=== PATIENT | male | born 1955 | race American Indian/Alaskan Native ===

== ENCOUNTER 2017-05-23 13:26 | Emergency (ER) | payer OTHER ==
--- NOTE | 2017-05-23 14:54 | Cat Scan Report ---
FINAL REPORT PROCEDURE: CT HEAD/BRAIN WO CON TECHNIQUE: Computerized tomography of the head was performed without contrast material. HISTORY: headache COMPARISON: No prior studies are available for comparison. FINDINGS: Brain: Brain density appears normal. No evidence of intracranial hemorrhage. No parenchymal hemorrhage, mass lesions or mass effect are seen. No abnormal extraxial fluid collects or masses are seen. Nonspecific mineralization of the basal ganglia are visualized. Ventricles: Ventricles are normal size and are midline. Bone Windows: No evidence of skull fracture. Paranasal sinuses: There is patchy mucosal disease in a few of the ethmoid air cells bilaterally. There is also mild mucosal thickening anterior in the left side of the sphenoid sinus. Small calcified nodular density is seen anterior medial aspect right frontal sinus measuring 8.3 x 3.9 millimeters suggesting a small osteoma. Visualized portions of the paranasal sinuses otherwise appear clear. Mastoid air cells: Clear IMPRESSION: Negative unenhanced CT of the brain. Mild paranasal sinus disease as described.
[2017-05-23] MEDS ORDERED: REGLAN IV ONE (16:09)
--- NOTE | 2017-05-23 16:09 | Emergency Department Report ---
ED Headache HPI - General Chief Complaint: Headache Stated Complaint: SEVERE HEADACHES Time Seen by Provider: 05/23/17 16:07 - History of Present Illness Initial Comments: 61-year-old male past medical history hypertension, diabetes presents with complaint of 3 days of waxing and waning anterior throbbing headaches. Patient is awake alert and oriented 3 denies upper or lower extremity paresthesias denies facial paresthesias denies nausea or vomiting denies fever or chills his fully lucid cooperative and ambulatory during the exam. Denies any blurry vision denies any dizziness. States that he feels pressure in his anterior forehead and in his sinuses which seems to get progressively worse. States that he came to the ED because he went to urgent care and had elevated blood pressures of the symptoms ED to rule out CVA. Denies any head trauma. Accompanied by daughter at bedside. Timing/Duration: increasing, episodic Quality: moderate Head Injury Location: frontal Recent Head Trauma: no recent headache/trauma Allergies/Adverse Reactions: Allergies No Known Allergies Allergy (Unverified 05/23/17 13:40) Home Medications: Ambulatory Orders Acetaminophen [Acetaminophen TAB] 500 mg PO Q6HR PRN #30 tablet 05/23/17 Amoxicillin/K Clav Tab [Augmentin 875 mg] 1 tab PO Q12HR #14 tab 05/23/17 Fluticasone [Flonase] 1 spray NS QDAY PRN #1 bottle 05/23/17 Loratadine [Claritin] 10 mg PO DAILY PRN #30 tablet 05/23/17 amLODIPine [Norvasc] 5 mg PO DAILY #30 tab 05/23/17 ED Review of Systems ROS: Stated complaint: SEVERE HEADACHES Other details as noted in HPI Constitutional: denies: chills, fever Eyes: denies: eye pain, eye discharge, vision change ENT: denies: ear pain, throat pain Respiratory: denies: cough, shortness of breath, wheezing Cardiovascular: denies: chest pain, palpitations Endocrine: no symptoms reported Gastrointestinal: denies: abdominal pain, nausea, diarrhea Genitourinary: denies: urgency, dysuria Musculoskeletal: denies: back pain, joint swelling, arthralgia Skin: denies: rash, lesions Neurological: headache. denies: weakness, paresthesias Psychiatric: denies: anxiety, depression Hematological/Lymphatic: denies: easy bleeding, easy bruising ED Past Medical Hx - Past Medical History Hx Diabetes: Yes - Surgical History Past Surgical History?: No - Social History Smoking Status: Never Smoker Substance Use Type: Alcohol - Medications Home Medications: Home Medications Medication Instructions Recorded Confirmed Last Taken Type Acetaminophen [Acetaminophen TAB] 500 mg PO Q6HR PRN #30 tablet 05/23/17 Unknown Rx Amoxicillin/K Clav Tab [Augmentin 1 tab PO Q12HR #14 tab 05/23/17 Unknown Rx 875 mg] Fluticasone [Flonase] 1 spray NS QDAY PRN #1 bottle 05/23/17 Unknown Rx Loratadine [Claritin] 10 mg PO DAILY PRN #30 tablet 05/23/17 Unknown Rx amLODIPine [Norvasc] 5 mg PO DAILY #30 tab 05/23/17 Unknown Rx ED Physical Exam - General Limitations: No Limitations General appearance: alert, in no apparent distress - Head Head exam: Present: atraumatic, normocephalic - Eye Eye exam: Present: normal appearance, PERRL, EOMI - ENT ENT exam: Present: mucous membranes moist - Neck Neck exam: Present: normal inspection, full ROM (neck flexion and extension intact no nuchal rigidity) - Respiratory Respiratory exam: Present: normal lung sounds bilaterally. Absent: respiratory distress - Cardiovascular Cardiovascular Exam: Present: regular rate, normal rhythm. Absent: systolic murmur, diastolic murmur, rubs, gallop - GI/Abdominal GI/Abdominal exam: Present: soft, normal bowel sounds - Rectal Rectal exam: Present: deferred - Extremities Exam Extremities exam: Present: normal inspection - Back Exam Back exam: Present: normal inspection - Neurological Exam Neurological exam: Present: alert, oriented X3, CN II-XII intact, normal gait - Expanded Neurological Exam Expanded Patient oriented to: Present: person, place, time Cranial nerves: EOM's Intact: Normal, Facial Sensation: Normal Cerebellar function: Finger to Nose: Normal, Heel to Nelson: Normal, Romberg: Normal Sensory exam: Upper Extremity Light Touch: Normal, Lower Extremity Light Touch: Normal Motor strength exam: RUE: 5, LUE: 5, RLE: 5, LLE: 5 DTR: bicep (R): 3+, bicep (L): 3+, tricep (R): 3+, tricep (L): 3+, knee (R): 3+ , knee (L): 3+, ankle (R): 3+, ankle (L): 3+ Best Eye Response ([place]): (4) open spontaneously Best Motor Response (Lexx): (6) obeys commands Best Verbal Response ([place]): (5) oriented Lexx Total: 15 - Psychiatric Psychiatric exam: Present: normal affect, normal mood - Skin Skin exam: Present: warm, dry, intact, normal color. Absent: rash ED Course Vital Signs 05/23/17 05/23/17 05/23/17 13:40 16:30 17:32 Temperature 97.5 F L Pulse Rate 57 L 87 62 Respiratory 16 18 18 Rate Blood Pressure 155/77 Blood Pressure 180/90 170/80 [Left] O2 Sat by Pulse 100 100 100 Oximetry 05/23/17 19:55 Temperature Pulse Rate 60 Respiratory 18 Rate Blood Pressure 152/70 Blood Pressure [Left] O2 Sat by Pulse 99 Oximetry ED Medical Decision Making - Lab Data Result diagrams: 05/23/17 16:21 05/23/17 16:21 - Medical Decision Making A/P: Acute headache, sinusitis, hypertension 1-case discussed with Dr. Tariq before discharge including discussion of CT results. Cranial nerves 2, 3, 4, 5, 6, 7, 8,10, 11, 12 intact on clinical exam , patient is fully lucid awake alert and oriented 3 conversant. Denies any upper or lower extremity paresthesias and has 5/5 strength in bilateral upper and lower extremities on clinical exam. 2-Tylenol when necessary, Flonase, course of Augmentin for empiric treatment of sinusitis, Claritin 3-follow-up with primary care. Patient states he has primary care follow-up on Thursday 4- patient has no chest pain palpitations nausea dizziness abdominal pain blurry vision or shortness of breath. Headache has significantly subsided with one dose of Reglan and Benadryl patient does not currently have any headache. Will start on low-dose amlodipine and will refer patient to primary care as per Dr. Tariq Critical care attestation.: If time is entered above; I have spent that time in minutes in the direct care of this critically ill patient, excluding procedure time. ED Disposition Clinical Impression: Headache Qualifiers: Headache type: unspecified Headache chronicity pattern: acute headache Intractability: not intractable Qualified Code(s): R51 - Headache Hypertension Qualifiers: Hypertension type: unspecified Qualified Code(s): I10 - Essential (primary) hypertension Disposition: TO HOME OR SELFCARE Is pt being admited?: No Does the pt Need Aspirin: No Condition: Stable Instructions: Sinusitis (ED), Acute Headache (ED), Hypertension (ED) Prescriptions: Acetaminophen [Acetaminophen TAB] 500 mg PO Q6HR PRN #30 tablet PRN Reason: Pain amLODIPine [Norvasc] 5 mg PO DAILY #30 tab Amoxicillin/K Clav Tab [Augmentin 875 mg] 1 tab PO Q12HR #14 tab Fluticasone [Flonase] 1 spray NS QDAY PRN #1 bottle PRN Reason: Congestion Loratadine [Claritin] 10 mg PO DAILY PRN #30 tablet PRN Reason: Congestion Referrals: PRIMARY CAREMD [Primary Care Provider] - 3-5 Days [facility] [Outside] - 3-5 Days [facility] [Outside] - 3-5 Days CARLO GALVEZ MD [Staff Physician] - 3-5 Days Time of Disposition: 19:35
[2017-05-23] MEDS ORDERED: BENADRYL ONE (16:33)
[2017-05-23] MEDS ORDERED: NACL 0.9% 500 ML 500 ML ONE (16:40)
[2017-05-23 16:51] LABS: Basophils % (Auto) 0.7 % (0.0-1.8); Hematocrit 45.5 % (35.5-45.6); Hemoglobin 15.1 gm/dl (11.8-15.2); Mean Corpuscular HGB Conc 33 % (32-34); Mean Corpuscular Hemoglobin 29 pg (28-32); Mean Corpuscular Volume 87 fl (84-94); Platelet Count 157 K/mm3 (140-440); White Blood Count 5.2 K/mm3 (4.5-11.0)
[2017-05-23 16:59] LABS: BUN/Creatinine Ratio 13; Blood Urea Nitrogen 12 mg/dL (9-20); Calcium 9.5 mg/dL (8.4-10.2); Carbon Dioxide 21 mmol/L (22-30); Chloride 98.5 mmol/L (98-107); Glucose 97 mg/dL (75-100); Sodium 135 mmol/L (137-145)
[2017-05-23 17:01] LABS: Anion Gap 20 mmol/L; Potassium 4.7 mmol/L (3.6-5.0)
[2017-05-23] MEDS ORDERED: NACL 0.9% 500 ML 500 ML IV ONE (17:16)
[2017-05-23] MEDS ORDERED: BENADRYL IV ONE (17:16)
--- NOTE | 2017-05-23 18:14 | Cat Scan Report ---
FINAL REPORT PROCEDURE: CT ANGIO HEAD TECHNIQUE: Computerized tomographic angiography of the head was performed during the IV injection of iodinated nonionic contrast including image processing. The image data was postprocessed using 2-dimensional multiplanar reformatted (MPR) and 3-dimensional (MIP and/or volume rendered) techniques. HISTORY: severe headache COMPARISON: No prior studies are available for comparison. FINDINGS: There are calcified plaque visualized in the right and left carotid siphons. There is approximately 30-40 percent narrowing of the right and left carotid siphons which are otherwise patent. The A1 segments bilaterally are patent. The anterior cerebral arteries and middle cerebral arteries are patent. No changes are seen to suggest aneurysm or vascular malformation. There is no occlusion. Vertebral arteries basilar artery and posterior cerebral arteries appear widely patent and show no abnormalities. Dural sinuses are unremarkable. No abnormal enhancing lesions are seen in the brain parenchyma. Ventricles are normal size and are midline. No abnormal extra-axial fluid collections are seen. No evidence of parenchymal hemorrhage. Patchy mucosal disease seen in several of the ethmoid air cells. There is mucosal thickening in the right and left sphenoid sinus. Small calcified nodular density is seen in the right frontal sinus suggesting a small osteoma. Mastoid air cells are clear. IMPRESSION: The anterior and posterior circulation are intact. There is calcified plaquing seen in the right and left carotid siphons narrowing the vessels approximately 30-40 percent. No high-grade areas of stenosis are seen in the anterior or posterior circulation. Mild paranasal sinus disease as described.
--- NOTE | 2017-05-23 18:23 | Cat Scan Report ---
FINAL REPORT PROCEDURE: CT ANGIO NECK TECHNIQUE: Computerized tomographic angiography of the neck was performed after the IV injection of iodinated nonionic contrast including image processing. The image data was postprocessed using 2-dimensional multiplanar reformatted (MPR) and 3-dimensional (MIP and/or volume rendered) techniques. HISTORY: severe headache COMPARISON: No prior studies are available for comparison. Note: Assessment of carotid artery stenosis is based on measurement of the distal internal carotid artery diameter as the denominator for stenosis calculations and the [place] Symptomatic Carotid Endarterectomy Trial (NASCET) stenosis criteria . CPT 3100F FINDINGS: Right and left common carotid arteries the carotid bulbs and internal carotid arteries appear widely patent. The vertebral arteries bilaterally are also widely patent. No soft tissue abnormalities are identified. IMPRESSION: Carotid arteries and vertebral arteries appear widely patent. There is no occlusion or stenosis identified.
[2017-05-23 19:58] VITALS: BP 152/70
== END 2017-05-23 19:59 | disposition home or self-care (01) ==
LOC: ED 13:26
DX: I10 Essential (primary) hypertension (principal)
CPT/HCPCS: 36415; 70450; 70496; 70498; 80048; 82962; 85025; 96374; 96375; 99284; J1200; J2765; J7040; Q9967